=== PATIENT | male | born 1980 | race Caucasian/White ===

== ENCOUNTER 2020-11-11 10:14 | Inpatient (IN) | payer OTHER ==
[~2020-11-11] VITALS: Ht 190.5 cm; Wt 158.8 kg
[2020-11-11 11:44] LABS: HEMOGLOBIN 11.4 gm/dl (14.0-17.5); RED BLOOD COUNT 4.91 M/UL (4.20-5.50); WHITE BLOOD COUNT 5.9 K/UL (4.5-11.0)
[2020-11-11 11:57] LABS: BUN/CREATININE RATIO 12 (0-10)
[2020-11-11] MEDS ORDERED: FERROUS SULFAT325 M2 PO (14:00)
[2020-11-11] MEDS ORDERED: VISTARIL50 MG PO (14:01)
[2020-11-11] MEDS ORDERED: TUMS200 MG PO (14:01)
[2020-11-11] MEDS ORDERED: FOLIC ACID 1 MG1 MG PO (14:01)
[2020-11-11] MEDS ORDERED: MOTRIN IB200 MG PO (14:01)
[2020-11-11] MEDS ORDERED: ZESTRIL/PRINIVI10 MG PO (14:02)
[2020-11-11] MEDS ORDERED: LEVOTHYROXINE150 MC1 PO (14:02)
[2020-11-11] MEDS ORDERED: THERAGRAN M TAB1 EA PO (14:03)
[2020-11-11] MEDS ORDERED: MAGNESIUM OXID400 M1 PO (14:03)
[2020-11-11] MEDS ORDERED: ZOFRAN ODT 4 MG4 MG PO (14:04)
[2020-11-11] MEDS ORDERED: B-1100 MG PO (14:04)
[2020-11-11] MEDS ORDERED: OLANZAPINE5 MG PO (14:04)
[2020-11-11] MEDS ORDERED: TRAZODONE HCL100 MG PO (14:05)
[2020-11-11] MEDS ORDERED: LIBRIUM CAP 2525 MG PO (14:06)
[2020-11-11] MEDS ORDERED: TYLENOL325 MG PO (14:06)
[2020-11-11] MEDS ORDERED: CYCLOBENZAPRINE10 MG PO (14:06)
[2020-11-11] MEDS ORDERED: NICOTINE LOZENGE2 MG PO (14:07)
[2020-11-11] MEDS ORDERED: KEPPRA500 MG PO (14:07)
[2020-11-11] MEDS ORDERED: PROTONIX40 MG PO (14:07)
[2020-11-11] MEDS ORDERED: CATAPRES 0.1MG0.1 MG PO (14:08)
[2020-11-11] MEDS ORDERED: ABILIFY5 MG PO (14:23)
[2020-11-11] MEDS ORDERED: LEXAPRO20 MG PO (14:23)
[2020-11-12 05:32] LABS: HEMOGLOBIN 10.6 gm/dl (14.0-17.5); RED BLOOD COUNT 4.57 M/UL (4.20-5.50); WHITE BLOOD COUNT 5.9 K/UL (4.5-11.0)
[2020-11-12 05:58] LABS: BUN/CREATININE RATIO 14 (0-10)
--- NOTE | 2020-11-13 08:59 | NUR ---
pt alert and oriented x3, follows commands appropriately, refusing all meds, monitoring, supplemental oxygen, and lab draws at this time. pt educated on possible negative outcomes from refusing treatment and monitoring, up to and including , and continues to refuse. md peralta.
[2020-11-13 10:14] LABS: RED BLOOD COUNT 4.27 M/UL (4.20-5.50); WHITE BLOOD COUNT 4.9 K/UL (4.5-11.0)
[2020-11-13 10:47] LABS: BUN/CREATININE RATIO 14 (0-10)
[2020-11-13] MEDS ORDERED: OLANZAPINE5 MG PO (12:39)
[2020-11-13] MEDS ORDERED: PROTONIX40 MG PO (12:41)
--- NOTE | 2020-11-13 13:50 | NUR ---
PT WAS NOTIFIED TO FOLLOW UP WITH PCP IN 1WK; PT STATED THAT HE DOES NOT HAVE A CURRENT PROVIDER; UNABLE TO ARRANGE A PROVIDER D/T WEEKEND HOURS; INFORMED PATIENT TO HAVE PCP CONTACT HOSPITAL FOR FAXED COPY OF DISCHARGE SUMMARY ONCE HE MAKES AN APPOINTMENT. [facility] NOTIFED, PAYMENT ARRANGED BY HOSPITAL FOR TRANSPORT HOME BY [facility] 1ST SHIFT. [facility] STATED THEY WILL BE HERE AT 2:30 PM; INFORMED PT, AND PT STATED THAT HE WOULD "WAIT OUTSIDE" AND WALKED OUT OF UNIT AT 1348.
== END 2020-11-13 14:00 | disposition home health service (06) | DRG 897 ==
LOC: ER1 10:14 → ZEROF 13:32 → CDU 13:32 → CCU 15:25
PROVIDERS: Emergency Medicine; Physician Assistant; Physician Assistant Medical; ADMIT Internal Medicine
DX: F10.139 Alcohol abuse with withdrawal, unspecified (principal); E87.2 Acidosis; I10 Essential (primary) hypertension; E03.9 Hypothyroidism, unspecified; Z88.8 Allergy status to other drugs, medicaments and biological substances; E83.42 Hypomagnesemia; D50.9 Iron deficiency anemia, unspecified; K21.9 Gastro-esophageal reflux disease without esophagitis; Z20.822 Contact with and (suspected) exposure to COVID-19; F10.10 Alcohol abuse, uncomplicated; F19.10 Other psychoactive substance abuse, uncomplicated; F11.10 Opioid abuse, uncomplicated; E07.9 Disorder of thyroid, unspecified
CPT/HCPCS: 36415; 80053; 80307; 81001; 83605; 83690; 83735; 84100; 85025; 85027; 93005; 96374; 96375; 96376; 99285; G0480; J1650; J2060; J2405; J3411; J3475; J7030; U0002

== ENCOUNTER 2021-02-01 22:28 | Emergency (ER) | payer OTHER ==
[~2021-02-01 22:28] MED LIST: ABILIFY5 MG PO; B-1100 MG PO; CATAPRES 0.1MG0.1 MG PO; CYCLOBENZAPRINE10 MG PO; FERROUS SULFAT325 M2 PO; FOLIC ACID 1 MG1 MG PO; KEPPRA500 MG PO; LEVOTHYROXINE150 MC1 PO; LEXAPRO20 MG PO; LIBRIUM CAP 2525 MG PO; MAGNESIUM OXID400 M1 PO; MOTRIN IB200 MG PO; NICOTINE LOZENGE2 MG PO; OLANZAPINE5 MG PO; PROTONIX40 MG PO; THERAGRAN M TAB1 EA PO; TRAZODONE HCL100 MG PO; TUMS200 MG PO; TYLENOL325 MG PO; VISTARIL50 MG PO; ZESTRIL/PRINIVI10 MG PO; ZOFRAN ODT 4 MG4 MG PO
[2021-02-02 00:38] LABS: HEMOGLOBIN 12.7 gm/dl (14.0-17.5); RED BLOOD COUNT 5.82 M/UL (4.20-5.50); WHITE BLOOD COUNT 7.1 K/UL (4.5-11.0)
[2021-02-02 00:57] LABS: BUN/CREATININE RATIO 12 (0-10)
== END 2021-02-02 09:43 | disposition short-term general hospital (02) ==
LOC: ER1 22:28
PROVIDERS: Physician Assistant
DX: F32.9 Major depressive disorder, single episode, unspecified (principal); E03.9 Hypothyroidism, unspecified; I10 Essential (primary) hypertension; Z90.89 Acquired absence of other organs; Z88.8 Allergy status to other drugs, medicaments and biological substances; F10.10 Alcohol abuse, uncomplicated; Z20.822 Contact with and (suspected) exposure to COVID-19
CPT/HCPCS: 80053; 80307; 81001; 84439; 84443; 85025; 96365; 96366; 96375; 99285; G0480; J2060; J2405; J3411; J3475; J7030; U0002